=== PATIENT | female | born 1995 | race Caucasian/White ===

== ENCOUNTER 2022-07-25 06:38 | Outpatient (CLI) | payer BC, SELFPAY ==
[2022-07-25 07:15] VITALS: BP 106/73; PULSE 81
--- NOTE | 2022-07-25 07:23 | P.HP_ITS ---
H&P: HPI History of Present Illness Date/Time: 07/25/22 07:23 Chief Complaint: fetus has been breech here for external version discussed risks including placental abruption and consent signed, IV placed by JUJU ON LICENSE OF [facility] Family History Family History Grandparent Hypertension Cerebrovascular accident Family history of pancreatic cancer Family history of lung cancer Social History Social History Smoking status: Never smoker Alcohol intake: current Substance use: never Spiritual care concerns: No Meds Home Medications and Allergies Home Medications Medication Instructions Recorded Confirmed Type prenat.vits,adair,yyf-[id number] 1 tablet PO DAILY 07/21/22 07/21/22 History Allergies Allergy/AdvReac Type Severity Reaction Status Date / Time amoxicillin Allergy Intermediate Rash Verified 07/21/22 15:37 Latex, Natural Rubber Allergy Mild Rash Verified 07/21/22 15:37 Vital Signs Vital Signs - 24 hr 07/25/22 07:15 Pulse Rate 81 Blood Pressure 106/73 Exam Const: General: cooperative and healthy appearing Resp: Effort & Inspection: normal respiratory effort : Other: Gravid, oblique/transverse by leopolds and bedside US Assessment and Plan Assessment and plan (1) Transverse lie: Code(s): O32.2XX0 - Maternal care for transverse and oblique lie, not applicable or unspecified Status: Acute Plan transverse/obliques presentation plan external version
[2022-07-25 07:30] VITALS: BP 102/63; PULSE 79
[2022-07-25 07:45] VITALS: BP 105/72; PULSE 74
[2022-07-25 08:00] VITALS: BP 107/74; PULSE 79
--- NOTE | 2022-07-25 08:08 | PC.NURSE ---
Pt here for external version. Dr. Hoyt and Chantal ROAM in dept. Terbutaline given per order.
--- NOTE | 2022-07-25 08:10 | PC.NURSE ---
[facility] and ROSA MARIAO off for version. Dr. Hoyt and Chantal Yu at bedside.
[2022-07-25] MEDS: TERBUTALINE SULFATE 1 MG/ML VIAL 0.25 MG SUB-Q (08:11)
[2022-07-25 08:15] VITALS: BP 117/68; PULSE 76
--- NOTE | 2022-07-25 08:15 | PC.NURSE ---
Baby noted to be vertex on ultrasound. SVE done after ultrasound per Chantal Yu.
[2022-07-25 08:35] VITALS: BP 106/73
--- NOTE | 2022-07-25 08:35 | PC.NURSE ---
Pt discharged home ambulatory. No questions or concerns at discharge. To follow up with Chantal Yu in office.
== END 2022-07-25 08:35 | disposition home or self-care (01) ==
LOC: ANHOBOP 06:43 → ANHOBPP 06:44
PROVIDERS: PCP Nurse Practitioner Family; Visit Provider Obstetrics & Gynecology
DX: O32.1XX0 Maternal care for breech presentation, not applicable or unspecified (principal); Z3A.00 Weeks of gestation of pregnancy not specified
CPT/HCPCS: 59025; 99199; J3105

== ENCOUNTER 2022-08-14 08:36 | Inpatient (IN) | payer BC, SELFPAY ==
[2022-08-14] VITALS (9 sets, daily range): BP systolic 91–129; BP diastolic 67–94; PULSE 71–107; RESP 16–18; TEMP 36.7–37.2; O2SAT 98–100; BMI 27.6
[2022-08-14] MEDS: ceFAZolin 2 GM/D5W 50 ML 2 GM/50 ML BAG IVPB (09:01)
[2022-08-14] MEDS: LACTATED RINGERS 1,000 ML 125 ML IV CONT (09:01)
--- NOTE | 2022-08-14 09:02 | LDADM ---
This patient, Carlota Fernández, was admitted to Labor/Delivery/Recovery 107 on 08/14/22 at 08:36. Plans for labor, pain management and were discussed with patient. Patient/family oriented to hospital policies and general routines including ID bracelet, bed and alarms, visiting hours, pain management, procedures, bathroom and other care routines, personal items, smoking policy, room service/diet and guest tray routines, infant security routines, and visiting hours. Patient/Family are encouraged to report perceived risks to care and to ask questions if they do not understand what they are told or what they should do. See OBIX for further documentation.
[2022-08-14 09:03] LABS: Basophils Percent Auto 0.2 % (0.2-1.2); Eosinophils Percent Auto 0.1 % (0-4.4); Hematocrit 36.7 % (37.0-47.0); Hemoglobin 12.4 g/dL (12.0-15.0); Immature Granulocyte Absolute 0.05 K/mm3 (0.00-0.031); Immature Granulocyte Percent A 0.5 % (0-0.5); Mean Corpuscular HGB Conc 33.8 g/dl (32-36); Mean Corpuscular Hemoglobin 32.5 pg (26-34); Mean Corpuscular Volume 96.1 fl (80-100); Mean Platelet Volume 10.6 fl (7.4-10.4); Monocytes Absolute Auto 0.5 K/mm3 (0.1-0.6); Monocytes Percent Auto 5.4 % (2.6-8.5); Neutrophils Absolute Auto 7.4 K/mm3 (1.3-6.7); Neutrophils Percent Auto 80.8 % (45.5-73.1); Platelet Count Result 157 k/mm3 (150-375); Red Blood Count 3.82 M/mm3 (4.2-5.4); Red Cell Distribution Width 13.2 % (11.5-14.5); White Blood Count 9.2 K/mm3 (4.5-10.0)
--- NOTE | 2022-08-14 09:08 | WPDOBADMIT ---
Obstetrics - Admit Note Admission Note: record reviewed. No pertinent additions to the history and/or any subsequent changes in the physical findings that are not consistent with the expected course of the were found. Pt arrived in [facility] station, anticipate vaginal delivery Additions to the history and/or subsequent changes in the physical findings follow. None.
[2022-08-14] MEDS: OXYTOCIN 30 UNITS/NS 500 ML 30 UNITS/500 ML BAG 999 UNITS IV CONT (09:57)
--- NOTE | 2022-08-14 10:08 | PM.OBPRVD ---
OB - Delivery Note Procedure Delivery date: 08/14/22 Procedure: Route of delivery: Laceration Description: Perineal - 1st Degree Delivery repair: vicryl Specimen: No Quantitative Blood Loss (ml): 245 Anesthesia type: Local Disposition: Floor Baby Date of : 08/14/22 Time of : 09:51 Weeks of gestation at delivery: 39 Infant gender: Male presentation: vertex position: Left Occiput Anterior Placenta delivery description: Spontaneous Cord Vessel Description: 3 Vessels, Clamped/Cut and Delayed Cord Clamping score one minute: 8 score five minutes: 9 Narrative: mother and baby skin to skin in stable condition
[2022-08-14] MEDS: OXYTOCIN 30 UNITS/NS 500 ML 30 UNITS/500 ML BAG 125 UNITS IV CONT (10:21)
[2022-08-14] MEDS: IBUPROFEN 600 MG TABLET PO ×2 (10:52→18:54)
[2022-08-14] MEDS: WITCH HAZEL 40 PADS 1 PAD TOPICAL (10:53)
[2022-08-14] MEDS: BENZOCAINE 20% AER SPR (*SP) 56 GM CAN 1 SPRAY TOPICAL (10:53)
[2022-08-14 12:12] LABS: Rapid Plasma Reagin Non-Reactive (NonReactive)
--- NOTE | 2022-08-14 13:42 | OBPPTRN ---
Patient transferred to post room # 285 via ambulation. Support person present. Oriented to unit, room, information board, rooming in, admission packet and security measures. Patient verbalizes understanding.
[2022-08-14] MEDS: DOCUSATE SODIUM 100 MG CAPSULE PO (18:54)
[2022-08-15] MEDS: IBUPROFEN 600 MG TABLET PO ×4 (02:24→23:35)
[2022-08-15 05:00] VITALS: BP 115/85; PULSE 74; RESP 16; TEMP 36.8
[2022-08-15 05:55] LABS: Hematocrit 35.3 % (37.0-47.0); Hemoglobin 11.8 g/dL (12.0-15.0)
--- NOTE | 2022-08-15 07:28 | P.PNOB_ITS ---
OB - PN: Subj Subjective Date/time seen: 08/15/22 07:28 s/p vaginal delivery day 1, doing well OB - PN: Obj Data Labs 08/15/22 05:02 Labs: Laboratory Results - last 24 hr 08/14/22 08/14/22 08/14/22 08:59 08:59 08:59 WBC 9.2 RBC 3.82 L Hgb 12.4 Hct 36.7 L MCV 96.1 MCH 32.5 MCHC 33.8 RDW 13.2 Plt Count 157 MPV 10.6 H Immature Gran % (Auto) 0.5 Neut % (Auto) 80.8 H Lymph % (Auto) 13.0 L [place] % (Auto) 5.4 Eos % (Auto) 0.1 Baso % (Auto) 0.2 Lymph # (Auto) 1.20 [place] # (Auto) 0.5 Eos # (Auto) 0.0 Baso # (Auto) 0.0 Abs Immat Gran (auto) 0.05 H Absolute Neuts (auto) 7.4 H Absolute Nucleated RBC 0.0 Nucleated RBC % 0.0 RPR Non-reactive Blood Type O Positive Antibody Screen Negative 08/15/22 05:02 WBC RBC Hgb 11.8 L Hct 35.3 L MCV MCH MCHC RDW Plt Count MPV Immature Gran % (Auto) Neut % (Auto) Lymph % (Auto) [place] % (Auto) Eos % (Auto) Baso % (Auto) Lymph # (Auto) [place] # (Auto) Eos # (Auto) Baso # (Auto) Abs Immat Gran (auto) Absolute Neuts (auto) Absolute Nucleated RBC Nucleated RBC % RPR Blood Type Antibody Screen OB - PN A/P Plan day: 1 Plan: routine care Time Spent With Patient Time: Total time spent is greater than 50% in coordination of care (as documented) at patient's floor/unit and/or counseling patient: Review of Systems Review of Systems: All systems reviewed & are unremarkable except as noted in HPI and below Exam Const: General: cooperative, healthy appearing and comfortable Resp: Effort & Inspection: normal respiratory effort GI: Inspection: normal to inspection Skin: General skin exam: normal color Extrem: General: normal to inspection Psych: Appearance: grossly normal
[2022-08-15 08:10] VITALS: BP 116/65; PULSE 79; RESP 18; TEMP 36.8; O2SAT 100
--- NOTE | 2022-08-15 09:32 | PC.NURSE ---
[id number] Introductions were made and Mother verbalizes she is able to independently latch with appropriate positioning/alignment and has a 14 month successful history. She denies any nipple discomfort and is responsively . is currently meeting outcomes for weight, output, jaundice and feeding frequencies of 8-12 times in 24 hours. Mother declines any additional assistance/education at this time. Mother is encouraged to call for assistance if her infant doesn?t latch or there is discomfort with latching. Mother voiced understanding of information shared and the mom reminded of the mom/baby guide for an additional resource.
[2022-08-15] MEDS: MULTIVIT/MIN/PREN/FOL AC/IRON TABLET 1 TAB PO (09:39)
[2022-08-15] MEDS: DOCUSATE SODIUM 100 MG CAPSULE PO ×2 (09:39→16:06)
[2022-08-15 20:00] VITALS: BP 111/71; PULSE 74; RESP 18; TEMP 36.6
[2022-08-16] MEDS: DOCUSATE SODIUM 100 MG CAPSULE PO (07:07)
[2022-08-16] MEDS: IBUPROFEN 600 MG TABLET PO (07:07)
[2022-08-16] MEDS: MULTIVIT/MIN/PREN/FOL AC/IRON TABLET 1 TAB PO (07:08)
--- NOTE | 2022-08-16 07:28 | P.PNOB_ITS ---
OB - PN: Subj Subjective Date/time seen: 08/16/22 07:28 Patient comments: no complaints baby status: doing well [place] feeding status: exclusively breast feeding OB - PN: Obj Data Labs 08/15/22 05:02 OB - PN A/P Assessment and Plan (1) , delivered: Code(s): O80 - Encounter for full-term uncomplicated delivery Status: Acute Plan day: 2 Plan: routine care and discharge home Time Spent With Patient Time: Total time spent is greater than 50% in coordination of care (as documented) at patient's floor/unit and/or counseling patient: Time with patient: less than 15 minutes Exam Narrative: NAD abdomen soft, nontender, fundus firm below the umbilicus Extremities nontender, 1+ edema
--- NOTE | 2022-08-16 07:30 | PM.OBDSVD ---
DS: Admitting Diagnosis Discharge Date 08/16/22 Admitting Diagnosis term labor DS: Discharge Diagnosis Discharge Diagnosis (1) , delivered: Code(s): O80 - Encounter for full-term uncomplicated delivery Status: Acute OB - DS: Summary Hospital Course Hospital Course: Merrlil was admitted in labor at term and proceeded to have an uncomplicated vaginal delivery at term. She was discharged home in stable condition on PPD 2. OB Procedures : Ultrasound OB Procedures Intrapartum: Spontaneous Vag Delivery OB Procedures: : None Peripartum Data Infant Delivery Method: Natural Vaginal complications: none Status at Discharge Functional status at discharge: independent ambulation Time Spent with Patient Time attestation: Total time spent providing and/or coordinating discharge services: Exam Narrative: NAD abdomen soft, appropriately tender Ext non tender, 1+ edema Discharge Plan Discharge Attending physician on discharge: Sari Brown Discharging Clinician: Sari Brown Patient Disposition: Home, Self-Care Activity: pelvic rest Diet: regular Patient Instructions: Antibiotic Form Stand Alone Forms: General Discharge Information Follow-up/Referrals: Rosemary Yu CNM [Certified Nurse Regional Maintenance Manager] - 4 Weeks Discharge Medications: Continued #2 Tablet 1 tablet PO DAILY Date of admission: 08/14/22 08:36 Primary Care Provider: JamilaAwa Admitting Provider: Shasta Hoyt Attending physician on admission: Shasta Hoyt Condition: Stable
[2022-08-16 07:50] VITALS: BP 122/77; PULSE 77; RESP 16; TEMP 36.8; O2SAT 100
--- NOTE | 2022-08-16 09:31 | PC.NURSE ---
Patient viewed the discharge video Mother & Baby Care, The First Two Weeks . Patient was given the opportunity and encouraged to ask questions. Patient verbalized understanding of information shared and has been given the mother/baby guide for home reference.
[2022-08-18 10:22] VITALS: BP 111/91; PULSE 80; RESP 18; TEMP 36.8; O2SAT 100
== END 2022-08-16 10:22 | disposition home or self-care (01) | DRG 807 ==
LOC: ANHOB2 08-16 09:32 → ANHLDR 08-18 10:13 → ANHOB2 08-18 10:13
PROVIDERS: Admitting Provider Obstetrics & Gynecology; PCP Nurse Practitioner Family; Referring Provider Advanced Practice Midwife; Visit Provider Obstetrics & Gynecology
DX: O99.824 Streptococcus B carrier state complicating childbirth (principal); Z37.0 Single live birth; O70.0 First degree perineal laceration during delivery; Z3A.39 39 weeks gestation of pregnancy
CPT/HCPCS: 36415; 85014; 85018; 85025; 86592; 86850; 86900; 86901; A9270; J0690; J2590; J7120